=== PATIENT | female | born 1955 ===

== ENCOUNTER 2016-12-28 10:45 | Emergency (ER) | payer OTHER, BC ==
--- NOTE | 2016-12-28 11:20 | ED PDOC ---
HPI: Back Time Seen by Provider: 12/28/16 11:05 Chief Complaint (Nursing): Back Pain Chief Complaint (Provider): back pain History Per: Patient History/Exam Limitations: no limitations Additional Complaint(s): 61yo F in ED for eval of fall injury sustained 1 hr prior to arrival-states that she slipped on cardboard floor and injured the left side of hip took motrin for pain. admits to being able to walk. Pt admits to pain at llq radiating to back no nausea vomiting LE numbness or tingling. no head injury,. Past Medical History Reviewed: Historical Data, Nursing Documentation, Vital Signs Vital Signs: Last Vital Signs Temp 98.1 F 12/28/16 10:52 Pulse 63 12/28/16 10:52 Resp 18 12/28/16 10:52 BP 120/77 12/28/16 10:52 Pulse Ox 98 12/28/16 10:52 - Medical History PMH: Asthma, HTN - Family History Family History: States: No Known Family Hx - Immunization History Hx Tetanus Toxoid Vaccination: No Hx Influenza Vaccination: No Hx Pneumococcal Vaccination: No - Home Medications Home Medications: Ambulatory Orders Medication Instructions Recorded Albuterol HFA [Ventolin HFA 90 1 puff IH Q4H PRN 10/07/13 mcg/actuation (8 g)] Albuterol 0.083% [Albuterol 0.083% 3 ml IH TID PRN 02/23/15 Inhal Ava (2.5 mg/3 ml) UD] Esomeprazole Magnesium [Nexium] 40 mg PO DAILY 02/23/15 Guaifenesin [Mucinex] 1 tab PO Q12H PRN 02/23/15 Hydrochlorothiazide/Valsarta 1 tab PO DAILY 02/23/15 [Diovan Hct 12.5 mg-160 mg] Multivit,Iron,Min 5/Folic Acid 1 tab PO DAILY 02/23/15 [Strovite Forte Caplet] [id number] Ethyl Esters [Lovaza] 2 gm PO BID 02/23/15 Tramadol Hydrochloride [Tramadol] 50 mg PO Q8H PRN 02/23/15 Meclizine [Meclizine*] 25 mg PO TID #0 tab 02/27/15 Cyclobenzaprine [Cyclobenzaprine 10 mg PO BID #14 tab 12/28/16 HCl] Ibuprofen [Motrin] 400 mg PO Q6 #30 tab 12/28/16 - Allergies Allergies/Adverse Reactions: Allergies Allergy/AdvReac Type Severity Reaction Status Date / Time No Known Allergies Allergy Unverified 10/07/13 09:29 Review of Systems ROS Statement: Except As Marked, All Systems Reviewed And Found Negative Musculoskeletal: Positive for: Back Pain, Other (hip pain) Physical Exam - Reviewed Nursing Documentation Reviewed: Yes Vital Signs Reviewed: Yes - Physical Exam Appears: Positive for: Well, Non-toxic, No Acute Distress Skin: Positive for: Normal Color, Warm, DRY Cardiovascular/Chest: Positive for: Regular Rate, Rhythm Respiratory: Positive for: CNT, Normal Breath Sounds Gastrointestinal/Abdominal: Positive for: Bowel Sounds, Soft, Tenderness (mild tednerness noted to LLQ extending to groin area). Negative for: Normal Exam, Organomegaly, Mass, Distended, Guarding Back: Positive for: Normal Inspection Extremity: Positive for: Tenderness (mild noted to hip area left side. ). Negative for: Swelling Neurologic/Psych: Positive for: Alert, Oriented - ECG O2 Sat by Pulse Oximetry: 98 - Progress ED Course And Treament: pt will get xray of hip Medical Decision Making Medical Decision Making: pt wiht normal xray. PT advised to continue motrin tx for pain rest and f.u with pmd. Disposition - Clinical Impression Clinical Impression: Fall with injury, Contusion, hip, Muscle strain - Patient ED Disposition Is Patient to be Admitted: No Counseled Patient/Family Regarding: Studies Performed, Diagnosis, Need For Followup, Rx Given - Disposition Referrals: [facility] [place] [Outside] [facility] [Outside] Disposition: Routine/Home Disposition Time: 12:38 Condition: STABLE Prescriptions: Cyclobenzaprine [Cyclobenzaprine HCl] 10 mg PO BID #14 tab Ibuprofen [Motrin] 400 mg PO Q6 #30 tab Instructions: Musculoskeletal Pain (ED), Muscle Strain (ED) Forms: [facility] ED School/Work Excuse, [facility] (Puerto Rican) Print Language: FAROESE
[2016-12-28 12:46] VITALS: BP 124/68; PULSE 81; RESP 16; TEMP 98; O2SAT 99
--- NOTE | 2016-12-28 15:09 | RAD ---
PROCEDURE: Left Hip X-ray Radiographs. HISTORY: injury COMPARISON: None. FINDINGS: BONES: No definitive radiographic evidence of acute displaced fracture nor dislocation. Both femoral heads are appropriately located within the respective acetabula. Small rounded sclerotic density overlying the right inferior iliac bone possibly representing bone island or osteoma. JOINTS: Degenerative osteoarthritis both hip joints. Heterotopic bone changes also seen felt to be present adjacent to the superior acetabular roof. SOFT TISSUES: Chain sutures and metallic surgical clips left mid abdomen. Moderate amount of stool seen throughout the colon consistent with constipation. OTHER FINDINGS: None. IMPRESSION: No fracture seen. DJD. If symptoms persist or occult fracture suspected clinically consider followup CT scan of the pelvis and hips.
== END 2016-12-28 12:50 | disposition home or self-care (01) ==
LOC: H.ER 10:45
DX: S70.02XA Contusion of left hip, initial encounter (principal); S76.012A Strain of muscle, fascia and tendon of left hip, initial encounter; W01.0XXA Fall on same level from slipping, tripping and stumbling without subsequent striking against object, initial encounter

== ENCOUNTER 2018-05-13 12:46 | Emergency (ER) | payer BC, OTHER ==
[2018-05-13 12:51] VITALS: RESP 18; TEMP 97.9; O2SAT 100
[2018-05-13 14:14] LABS: BASO % 0.2 % (0.0-2.0); EOS # 0.1 K/uL (0.0-0.7); HEMOGLOBIN 12.3 g/dL (12.0-16.0); LYMPH # 2.3 K/uL (1.0-4.3); LYMPH % 23.9 % (20.0-40.0); MEAN CELL VOLUME 91.8 fl (81.0-99.0); MEAN CORPUSCULAR HEMOGLOBIN 29.8 pg (27.0-31.0); MEAN CORPUSCULAR HGB CONC 32.4 g/dL (33.0-37.0); MEAN PLATELET VOLUME 10.7 fl (7.2-11.7); MONO # 0.5 K/uL (0.0-0.8); MONO % 5.1 % (0.0-10.0); NEUT # 6.7 K/uL (1.8-7.0); NEUT % 69.8 % (50.0-75.0); NRBC % 0.1 % (0.0-0.0); RBC 4.13 Mil/uL (3.80-5.20); RED CELL DISTRIBUTION WIDTH 13.6 % (11.5-14.5); WHITE BLOOD COUNT 9.6 K/uL (4.8-10.8)
[2018-05-13 14:20] LABS: BLOOD UREA NITROGEN 20 mg/dl (7-17); CALCIUM 9.5 mg/dL (8.4-10.2); GFR NON-AFRICAN AMERICAN > 60
--- NOTE | 2018-05-13 14:29 | ED PDOC ---
HPI: Chest Pain Time Seen by Provider: 05/13/18 13:33 Chief Complaint (Nursing): Dizziness/Lightheaded Chief Complaint (Provider): Chest pain History Per: Patient, EMS History/Exam Limitations: no limitations Onset/Duration Of Symptoms: Mins Current Symptoms Are (Timing): Still Present Additional Complaint(s): 62 year old female presents to the ED via EMS complaining of chest pain. Patient reports she was at a local school, standing, and talking to someone when she fell forward. She states she broke the fall with her hands but hit her chest straight onto the floor. She is complaining of pain there and denies LOC, chest pain prior to the incident, or headache. She denies vomiting and diarrhea. Patient states her chest feels very tender on palpation. PMD: Flora Rapp Past Medical History Reviewed: Historical Data, Nursing Documentation, Vital Signs Vital Signs: Last Vital Signs Temp 97.9 F 05/13/18 12:48 Pulse 70 05/13/18 12:48 Resp 18 05/13/18 12:48 BP 118/70 05/13/18 12:48 Pulse Ox 100 05/13/18 12:48 - Medical History PMH: Asthma, HTN - Surgical History Surgical History: No Surg Hx - Family History Family History: States: Unknown Family Hx - Immunization History Hx Tetanus Toxoid Vaccination: No Hx Influenza Vaccination: No Hx Pneumococcal Vaccination: No - Home Medications Home Medications: Ambulatory Orders Medication Instructions Recorded Albuterol HFA [Ventolin HFA 90 1 puff IH Q4H PRN 10/07/13 mcg/actuation (8 g)] Albuterol 0.083% [Albuterol 0.083% 3 ml IH TID PRN 02/23/15 Inhal Ava (2.5 mg/3 ml) UD] Esomeprazole Magnesium [Nexium] 40 mg PO DAILY 02/23/15 Guaifenesin [Mucinex] 1 tab PO Q12H PRN 02/23/15 Hydrochlorothiazide/Valsarta 1 tab PO DAILY 02/23/15 [Diovan Hct 12.5 mg-160 mg] Multivit,Iron,Min 5/Folic Acid 1 tab PO DAILY 02/23/15 [Strovite Forte Caplet] [id number] Ethyl Esters [Lovaza] 2 gm PO BID 02/23/15 Tramadol Hydrochloride [Tramadol] 50 mg PO Q8H PRN 02/23/15 Meclizine [Meclizine*] 25 mg PO TID #0 tab 02/27/15 Cyclobenzaprine [Cyclobenzaprine 10 mg PO BID #14 tab 12/28/16 HCl] Ibuprofen [Motrin] 400 mg PO Q6 #30 tab 12/28/16 Naproxen [Naprosyn] 500 mg PO BID PRN #20 tablet 05/13/18 traMADol [Ultram] 50 mg PO TID PRN #15 tab 05/13/18 - Allergies Allergies/Adverse Reactions: Allergies Allergy/AdvReac Type Severity Reaction Status Date / Time No Known Allergies Allergy Unverified 10/07/13 09:29 Review of Systems ROS Statement: Except As Marked, All Systems Reviewed And Found Negative Cardiovascular: Positive for: Chest Pain Gastrointestinal: Negative for: Vomiting, Diarrhea Neurological: Negative for: Headache, Other (LOC) Physical Exam - Reviewed Nursing Documentation Reviewed: Yes Vital Signs Reviewed: Yes - Physical Exam Appears: Positive for: Non-toxic, No Acute Distress Head Exam: Positive for: ATRAUMATIC, NORMOCEPHALIC Skin: Positive for: Normal Color, Warm, Dry Eye Exam: Positive for: Normal appearance Neck: Positive for: Normal, Painless ROM Cardiovascular/Chest: Positive for: Other (Pain and light cough on palpation of chest; no obvious deformity; no obvious bruising) Respiratory: Positive for: Normal Breath Sounds. Negative for: Wheezing, Respiratory Distress Gastrointestinal/Abdominal: Positive for: Normal Exam, Soft. Negative for: Tenderness Extremity: Positive for: Normal ROM Neurologic/Psych: Positive for: Alert (and awake), Oriented. Negative for: Motor/Sensory Deficits - Laboratory Results Result Diagrams: 05/13/18 14:08 05/13/18 14:08 - ECG O2 Sat by Pulse Oximetry: 100 (RA) Pulse Ox Interpretation: Normal Medical Decision Making Medical Decision Making: Initial Impression: Chest trauma from fall Initial Plan: --ECG --BMP --Troponin --CBC --Chest X-ray --Toradol 30mg IV --Reevaluate Scribe Attestation: Documented by Loc Lares acting as a scribe for Bethany Collins MD. Provider Scribe Attestation: All medical record entries made by the Scribe were at my direction and personally dictated by me. I have reviewed the chart and agree that the record accurately reflects my personal performance of the history, physical exam, medical decision making, and the department course for this patient. I have also personally directed, reviewed, and agree with the discharge instructions and disposition. Disposition - Clinical Impression Clinical Impression: Contusion, chest wall - Patient ED Disposition Is Patient to be Admitted: No Doctor Will See Patient In The: Office Counseled Patient/Family Regarding: Diagnosis, Need For Followup - Disposition Referrals: Flora Barone MD [Medical Doctor] - Disposition: Routine/Home Disposition Time: 15:20 Condition: IMPROVED Prescriptions: Naproxen [Naprosyn] 500 mg PO BID PRN #20 tablet PRN Reason: Pain, Moderate (4-7) traMADol [Ultram] 50 mg PO TID PRN #15 tab PRN Reason: Pain, Severe (8-10) Instructions: Contusion (DC) Forms: [employer] (Tajik) Print Language: TURKISH - POA Present On Arrival: Falls Or Trauma
--- NOTE | 2018-05-13 15:05 | RAD ---
Date of service: 05/13/2018 HISTORY: chest injury COMPARISON: 02/23/2015 FINDINGS: LUNGS: No interval consolidation. Right upper lobe benign-appearing calcified granuloma-unchanged. PLEURA: No significant pleural effusion identified, no pneumothorax apparent. CARDIOVASCULAR: No aortic atherosclerotic calcification present. Normal cardiac size. No pulmonary vascular congestion. OSSEOUS STRUCTURES: No significant abnormalities. VISUALIZED UPPER ABDOMEN: Surgical changes left upper abdomen correlate clinically OTHER FINDINGS: None. IMPRESSION: No acute cardiopulmonary pathology noted.
[2018-05-13 15:47] VITALS: BP 122/73; PULSE 63
--- NOTE | 2018-05-14 00:10 | CARD ---
APPROVED REPORT Date of service: 05/13/2018 EKG Measurement Heart [id number] <Conclusion> Normal sinus rhythm Possible Left atrial enlargement Borderline ECG CPT rate has increased slightly
== END 2018-05-13 15:50 | disposition home or self-care (01) ==
LOC: H.ER 12:46
DX: S20.219A Contusion of unspecified front wall of thorax, initial encounter (principal); W18.30XA Fall on same level, unspecified, initial encounter; Y92.219 Unspecified school as the place of occurrence of the external cause
CPT/HCPCS: 71045; 71046; 80048; 82948; 84484; 85025; 93005; 99285; J1885